=== PATIENT | male | born 1990 | race African-American/Black ===

== ENCOUNTER 2018-03-17 12:12 | Emergency (ER) | payer SELFPAY ==
[~2018-03-17] VITALS: Ht 170.2 cm; Wt 79.4 kg
[2018-03-17 12:17] VITALS: BP 115/87
[2018-03-17 12:42] LABS: HEMATOCRIT 44.9 % (42.0-52.0); HEMOGLOBIN 14.1 G/DL (14.2-18.0); MEAN CORPUSCULAR VOLUME 73 FL (80-99); PLATELET COUNT 324 K/UL (150-450); RED BLOOD COUNT 6.14 M/UL (4.70-6.10); RED CELL DISTRIBUTION WIDTH 13.8 % (11.6-14.8); WHITE BLOOD COUNT 10.8 K/UL (4.8-10.8)
[2018-03-17 12:47] LABS: ANION GAP 9 mmol/L (5-15); BLOOD UREA NITROGEN 9 mg/dL (7-18); CALCIUM 10.5 MG/DL (8.5-10.1); CARBON DIOXIDE 27 MMOL/L (21-32); CHLORIDE 100 MMOL/L (98-107); CREATININE 1.1 MG/DL (0.55-1.30); POTASSIUM 4.1 MMOL/L (3.5-5.1); SODIUM 136 MMOL/L (136-145)
[2018-03-17 12:50] LABS: ALANINE AMINOTRANSFERASE 89 U/L (12-78); ALBUMIN 4.4 G/DL (3.4-5.0); ALKALINE PHOSPHATASE 109 U/L (46-116); ASPARTATE AMINO TRANSFERASE 40 U/L (15-37); BILIRUBIN,TOTAL 0.8 MG/DL (0.2-1.0)
--- NOTE | 2018-03-17 13:39 | Emergency Room Report ---
History of Present Illness General Chief Complaint: Overdose Source: Patient (Pavel German DO) Present Illness HPI Patient presents by paramedics for reports of possible overdose of multiple medications Patient had felt increasingly nauseated there was reports of Percocet intake and other possible medications Patient himself is not answering any questions There was no reports of any medications given by paramedics History of present illness is significantly limited (Pavel German DO) Allergies: Coded Allergies: No Known Allergies (Unverified , 03/17/18) Patient History Limited by: medical condition Pertinent Family History: unable to obtain Reviewed Nursing Documentation: PMH: Agreed; PSxH: Agreed (Pavel German DO) Nursing Documentation-PMH Past Medical History: No Stated History (Pavel German DO) Review of Systems All Other Systems: limited - Other than the ones mentioned in the history of present illness all others are reviewed however they do stay limited due to the patient's mental status (Pavel German DO) Physical Exam Vital Signs Date Time Temp Pulse Resp B/P (MAP) Pulse Ox O2 Delivery O2 Flow Rate FiO2 03/17/18 12:10 97.9 74 16 125/82 98 Room Air Sp02 EP Interpretation: reviewed, normal General Appearance: no apparent distress Head: normocephalic, atraumatic Eyes: bilateral eye PERRL, bilateral eye EOMI ENT: normal pharynx Neck: supple Respiratory: lungs clear, no retraction, no accessory muscle use Cardiovascular #1: regular rate, rhythm Gastrointestinal: non tender, soft Musculoskeletal: normal inspection Neurologic: responsive - to physical stimuli however nonverbal with us Skin: normal color, no rash Lymphatic: no adenopathy (Pavel German DO) Medical Decision Making Diagnostic Impression: Primary Impression: Substance abuse ER Course Patient has is on a alarm security or surveillance monitor Critical on arrival requiring multiple blood work and reevaluations (Pavel German DO) ER Course Hospital Course 27-year-old M presents to ED with altered mental status. Patient initially seen and evaluated by Dr German; please see his note for full history and physical Clinical course Labs reviewed-electrolytes okay, no leukocytosis, hemoglobin/hematocrit stable, tox panel + for multilple substances patient allowed to rest. Stable vitals on monitor. No signs of distress. He is now awake alert oriented 3. Denies SI or HI. No emergent psychiatric emergency at this time. Patient is requesting detox services. We'll provide referrals Safe for discharge and close outpatient follow-up i. I feel this is a highly complex case requiring extensive working including EKG/Rhythm strip, Xray/CT/US, Blood/urine lab work, repeat exams while in ED, and administration of strong opiates/narcotics for pain control, admission to hospital or close patient follow up. Diagnosis -drug abuse Stable and discharged to home with Rx Zantac. Followup with detox/PMD. Return to ED if symptoms recur or worsen Labs Test 03/17/18 12:29 White Blood Count 10.8 K/UL (4.8-10.8) Red Blood Count 6.14 M/UL (4.70-6.10) Hemoglobin 14.1 G/DL (14.2-18.0) Hematocrit 44.9 % (42.0-52.0) Mean Corpuscular Volume 73 FL (80-99) Mean Corpuscular Hemoglobin 23.1 PG (27.0-31.0) Mean Corpuscular Hemoglobin Concent 31.5 G/DL (32.0-36.0) Red Cell Distribution Width 13.8 % (11.6-14.8) Platelet Count 324 K/UL (150-450) Mean Platelet Volume 9.9 FL (6.5-10.1) Neutrophils (%) (Auto) % (45.0-75.0) Lymphocytes (%) (Auto) % (20.0-45.0) Monocytes (%) (Auto) % (1.0-10.0) Eosinophils (%) (Auto) % (0.0-3.0) Basophils (%) (Auto) % (0.0-2.0) Differential Total Cells Counted 100 Neutrophils % (Manual) 85 % (45-75) Lymphocytes % (Manual) 10 % (20-45) Monocytes % (Manual) 5 % (1-10) Eosinophils % (Manual) 0 % (0-3) Basophils % (Manual) 0 % (0-2) Band Neutrophils 0 % (0-8) Platelet Estimate Adequate Platelet Morphology Normal Hypochromasia 2+ Microcytosis 2+ Ovalocytes Occasional Sodium Level 136 MMOL/L (136-145) Potassium Level 4.1 MMOL/L (3.5-5.1) Chloride Level 100 MMOL/L (98-107) Carbon Dioxide Level 27 MMOL/L (21-32) Anion Gap 9 mmol/L (5-15) Blood Urea Nitrogen 9 mg/dL (7-18) Creatinine 1.1 MG/DL (0.55-1.30) Estimat Glomerular Filtration Rate > 60 mL/min (>60) Glucose Level 109 MG/DL (74-106) Calcium Level 10.5 MG/DL (8.5-10.1) Total Bilirubin 0.8 MG/DL (0.2-1.0) Aspartate Amino Transf (AST/SGOT) 40 U/L (15-37) Alanine Aminotransferase (ALT/SGPT) 89 U/L (12-78) Alkaline Phosphatase 109 U/L (46-116) Total Protein 8.8 G/DL (6.4-8.2) Albumin 4.4 G/DL (3.4-5.0) Globulin 4.4 g/dL Albumin/Globulin Ratio 1.0 (1.0-2.7) Salicylates Level 0.3 ug/mL (2.8-20) Urine Opiates Screen Positive (NEGATIVE) Acetaminophen Level < 2 MCG/ML (10-30) Urine Barbiturates Screen Negative (NEGATIVE) Phencyclidine (PCP) Screen Negative (NEGATIVE) Urine Amphetamines Screen Negative (NEGATIVE) Urine Benzodiazepines Screen Negative (NEGATIVE) Urine Cocaine Screen Positive (NEGATIVE) Urine Marijuana (THC) Screen Positive (NEGATIVE) Serum Alcohol < 3 mg/dL (Royce Ashford MD) Last Vital Signs Date Time Temp Pulse Resp B/P (MAP) Pulse Ox O2 Delivery O2 Flow Rate FiO2 03/17/18 12:17 101.3 70 22 115/87 96 [facility] Status: improved (Royce Ashford MD) Disposition: HOME, SELF-CARE Condition: Stable Scripts Ranitidine Hcl* (ZANTAC*) 150 Mg Tablet 150 MG ORAL TWICE A DAY, #30 TAB Prov: Royce Ashford MD [facility] Mar 17, 2018 13:39 Royce Ashford MD Mar 17, 2018 22:09
[2018-03-17 14:15] VITALS: BP 113/83
[2018-03-17 16:10] VITALS: BP 112/82
[2018-03-17] MEDS ORDERED: Lidocaine 2% Visc 15ml soln ORAL ONE (17:15)
[2018-03-17] MEDS ORDERED: Mylanta II UD 30ml ORAL ONE (17:15)
[2018-03-17] MEDS ORDERED: Dicyclomine HCl 10mg/5ml oral soln ORAL ONE (17:15)
[2018-03-17] MEDS ORDERED: RANITIDINE HCL150 MG ORAL (17:40)
[2018-03-17 18:21] VITALS: BP 120/84
== END 2018-03-17 18:24 | disposition home or self-care (01) ==
LOC: EDBD 12:12 → EMR 13:00
DX: F19.10 Other psychoactive substance abuse, uncomplicated (principal); R41.82 Altered mental status, unspecified
CPT/HCPCS: 36415; 80053; 80307; 85007; 85025; 96361; 96374; 99284; G0480; S0028; 80329